=== PATIENT | male | born 1945 | race Caucasian/White ===

== ENCOUNTER → 2020-10-27 15:07 | Outpatient (CLI) | payer MEDICARE, SELFPAY ==
[2019-05-31 11:23] VITALS: BMI 32.2
--- NOTE | 2020-10-27 | LES_PTH ---
PATIENT: ROHIT NAVARRO LOC: [facility] U#:[id number] AGE/SX: 80/M ROOM: RE10/27/[address]: Dr. Cristian Yang MD : 1945 BED: DIS: SPEC #: [id number] RECD: 10/27/20 14:58 STATUS: CASEY RALPH #: [id number] CATHRYN: 10/27/20 00:[address]: Cristian Yang DEPT: SURGICAL PATHOLOGY RECD BY: Maureen Fraser ENTERED: 10/31/20 07:59 SP TYPE: Lesion OTHR DR: Kaylie Little PA-C Tissues: Skin of eyelid, NOS Procedures: Surgery Specimen Level IV HEADER OPERATION: Excision lesion right upper lid PRE-OP DIAGNOSIS: Lesion right upper lid TISSUE SUBMITTED: Lesion right upper lid MICROSCOPIC DIAGNOSIS Lesion of right upper eyelid, biopsy: Consistent with polypoid seborrheic keratosis. AM:juno 11/01/2020 MICROSCOPIC DESCRIPTION Slides are reviewed. GROSS DESCRIPTION Received in fixative is one container labeled with the patient's name and designated right upper lid. The specimen consists of an irregular fragment of dark pimentel soft tissue measuring 0.1 x 0.1 x <0.1 cm. The specimen is totally submitted in one cassette. / AM:juno 10/31/20 TC:5 CPT: 33110
== END ==
PROVIDERS: PCP Family Medicine; Referring Provider Ophthalmology; Visit Provider Ophthalmology
DX: L98.9 Disorder of the skin and subcutaneous tissue, unspecified (principal)
CPT/HCPCS: 88305

== ENCOUNTER 2021-08-06 10:44 | Day surgery (SDC) | payer MEDICARE, SELFPAY ==
--- NOTE | 2021-08-01 10:51 | RAD_ITS ---
STUDY: X-RAY CHEST REASON FOR EXAM: Male, 76 years old. For PPM generator change on 08/06/[address] German TECHNIQUE: PA and lateral. COMPARISON: 03/16/2015. FINDINGS: LUNGS: No consolidation. Reticular opacities in the left lung base unchanged likely scarring. No pneumothorax. MEDIASTINUM: Aorta tortuous and atherosclerotic.. CARDIAC SILHOUETTE: Not enlarged. BONES AND SOFT TISSUES: No acute abnormalities. Pacemaker device overlying the left chest with dual leads terminating in the region of the right atrium and right ventricle, unchanged. RAD/Chest PA and Lateral IMPRESSION: No evidence of active intrathoracic disease. Electronically Signed: Emily Ojeda MD at 3:28 EDT ,
[2021-08-01 11:06] LABS: Mucous, Urine 0 SEEN /hpf (<or=2+); Red Blood Cells-Urine 0 SEEN /hpf (0-5); Squamous Epithelial Cells - UA 0 SEEN /hpf (0-5); White Blood Cells 0 SEEN /hpf (0-5)
[2021-08-01 11:34] LABS: Hemoglobin 15.1 g/dL (13.0-16.5); Mean Corp Hgb Conc 33.6 g/dL (32-36); Mean Corpuscular Hgb 30.9 pg (27.0-32.0); Mean Corpuscular Volume 92.2 fL (80-94); Mean Platelet Vol. 10.8 fl (6.2-12.0); Platelet Count 225 K/mm3 (150-450); RBC Distribution Width CV 13.4 % (11.6-14.6); Red Blood Count 4.88 M/mm3 (4.6-6.2)
[2021-08-01 11:35] LABS: Color, Urine Yellow (Yellow); Glucose, Dipstick Normal (Normal); Ketone-Dipstick Negative (Negative); Leukocyte Esterase-Dipstick Negative /ul (Negative); Nitrite-Dipstick Negative (Negative); Occult Blood-Urine Negative /ul (Negative); Protein-Dipstick Negative (Negative); Urine Bilirubin Dipstick Negative (Negative); Urine Clarity Sl. Cloudy (Clear); Urine Urobilinogen Normal (Normal)
[2021-08-01 11:38] LABS: Prothrombin Time (Protime)PT. 12.6 SECONDS (11.7-14.9)
[2021-08-01 11:47] LABS: Amorphous Sediment 1+; Bacteria 1+ /hpf (None Seen)
[2021-08-01 11:52] LABS: Anion Gap 4 (5-15); BUN 18 mg/dL (7-18); BUN/Creat Ratio 17.1 RATIO (10-20); Chloride 108 mmol/L (98-107); Creatinine, Serum 1.05 mg/dL (0.70-1.30); EST Glomerular Filtration Rate 73 mL/min (>60); Est Glom Filt Rate - Afr Amer 88 mL/min (>60); Glucose 102 mg/dL (74-106); Potassium 3.9 mmol/L (3.5-5.1); Sodium Level 138 mmol/L (136-145)
[2021-08-03 07:20] VITALS: BMI 32.8
--- NOTE | 2021-08-13 07:05 | CL.IE_ITS ---
Patient: ROHIT NAVARRO Study Date: 08/06/2021 Performing: Marco A German MD : 1945 Age: 76 Gender: male PROCEDURES PERFORMED LP07-([id number])BATTERY REMOVAL+REPLACEMENT PACER-DUAL LEAD INDICATIONS Sinoatrial node dysfunction/Sick sinus syndrome PROCEDURE DETAILS The patient was brought to the Catheterization Lab in the postabsorptive nonsedated state. Infor med consent was obtained prior to the procedure. Local anesthetic was given subcutaneously to the le ft subclavian region with Lidocaine 2%. Incision was made to the left subclavicular area. PPM generat or was attached to the lead(s) and inserted into the pocket. PPM generator was then interrogated by t he operating system programmer. Device pocket was irrigated with antibiotic. Subcutaneous closure was completed with 3 -0 Vicryl. Skin closure was completed with 4-0 Vicryl. Steri-strips applied to left subclavicular inc ision. Instrument, sponge, and needle counts were noted to be normal. The patient tolerated the proce dure well. Estimated Blood Loss: 15 ml's IMPLANTED / EX-PLANTED DEVICES IMPLANTED DEVICE(S): PPM Generator - Energy Administrator: [employer], Model # Assurity MRI Ref [id number] , Serial # [id number] DEVICE PARAMETERS ATRIAL LEAD PARAMETERS: P wave- 1.0 (mV) Current- 1.1 (mA) threshold- 0.5 (V) impedence- 460 (OHMS) VENTRICULAR LEAD PARAMETERS: Current- 1.9 (mA) threshold- 1.0 (V) impedence- 550 (OHMS) DEVICE PARAMETERS: Mode- DDDR Lower rate- 60 Upper rate- 120 CONCLUSIONS / RECOMMENDATIONS Device Conclusions: Successful implantation of a dual chamber pacemaker battery change and replacemen t Device Recommendations: Follow up with Primary Care Physician PROCEDURE MEDICATIONS Versed 1 mg IV Fentanyl 50 mcg IV Versed 1 mg IV Oxygen: 2 L/min via nasal cannula Antibiotic given in appropriate timeframe. Clindamycin 900 mg IV 08/06/2021 11:37:39 Signed By Marco A German MD On 08/13/2021 7:44:52 AM Signed By Marco A German MD On 08/13/2021 07:03:46 Marco A German MD
== END 2021-08-06 23:59 | disposition home or self-care (01) ==
PROVIDERS: Internal Medicine Cardiovascular Disease; PCP Physician Assistant; Referring Provider Internal Medicine Cardiovascular Disease; Visit Provider Internal Medicine Cardiovascular Disease
DX: I49.5 Sick sinus syndrome (principal); I73.9 Peripheral vascular disease, unspecified; I71.4 Abdominal aortic aneurysm, without rupture; Z95.0 Presence of cardiac pacemaker; I25.10 Atherosclerotic heart disease of native coronary artery without angina pectoris; I10 Essential (primary) hypertension; Z87.891 Personal history of nicotine dependence; I49.1 Atrial premature depolarization; E78.00 Pure hypercholesterolemia, unspecified
CPT/HCPCS: 33228; 36415; 71046; 80048; 81001; 85027; 85610; 99152; 99153; J7050

== ENCOUNTER → 2023-02-20 | Outpatient (CLI) | payer MEDICARE, SELFPAY ==
--- NOTE | 2023-02-20 15:44 | CT_ITS ---
EXAM: CT ANGIOGRAPHY CHEST, ABDOMEN AND PELVIS WITH INTRAVENOUS CONTRAST CLINICAL INDICATION: aortic aneurysm TECHNIQUE: Helically acquired angiography images were obtained of the chest, abdomen and pelvis with intravenous contrast. This CT exam was performed using one or more of the following dose reduction techniques: automated exposure control, adjustment of the mA and/or kV according to patient size, and/or use of iterative reconstruction technique. MIP reconstructed images were created and reviewed. CONTRAST: IV 100mL Isovue-370 COMPARISON: No relevant prior studies available. FINDINGS: VASCULATURE: AORTA: There is an infrarenal aortic aneurysm that measures 4.1 cm in AP diameter. There is a crescent of thrombus seen in the anterior aspect of the aneurysm. There is no dissection or. PULMONARY ARTERIES: Unremarkable. Normal in caliber. No obvious central pulmonary embolism although this study was not performed with the pulmonary embolism protocol. GREAT VESSELS OF AORTIC ARCH: Unremarkable. Normal in caliber. No dissection. CELIAC TRUNK AND MESENTERIC ARTERIES: No acute findings. No occlusion or significant stenosis. No dissection. RENAL ARTERIES: No acute findings. No occlusion or significant stenosis. No dissection. ILIAC ARTERIES: No acute findings. No occlusion or significant stenosis. No dissection. CHEST: LUNGS AND PLEURAL SPACES: Unremarkable. No mass. No consolidation or edema. No pleural effusion or thickening. No pneumothorax. HEART: Unremarkable. Heart size is normal. No pericardial effusion. MEDIASTINUM: Unremarkable. No mediastinal or hilar adenopathy. Esophagus is unremarkable. No hiatal hernia. THYROID: Unremarkable. No thyroid lesions. ABDOMEN: LIVER: Unremarkable. Homogeneous. No focal mass. GALLBLADDER AND BILE DUCTS: Unremarkable. No calcified gallstones. No gallbladder distention or wall edema. No intra- or extrahepatic biliary ductal dilation. PANCREAS: Unremarkable. No focal cystic or solid mass. SPLEEN: Unremarkable. Normal size without focal cystic or solid mass. ADRENALS: Unremarkable. No nodules. KIDNEYS AND URETERS: There are low-density masses on the left kidney compatible simple cysts. No follow-up imaging is necessary. There is nonobstructing calyceal stones in the right kidney. STOMACH AND BOWEL: There is sigmoid diverticulosis with no evidence of diverticulitis. No stomach or bowel distention. PELVIS: APPENDIX: No evidence of acute appendicitis. BLADDER: Unremarkable. REPRODUCTIVE: Unremarkable as visualized. No mass. CHEST, ABDOMEN and PELVIS: INTRAPERITONEAL SPACE: Unremarkable. No ascites or other fluid collection. No free air. BONES/JOINTS: Unremarkable. No suspicious lytic or blastic abnormality. SOFT TISSUES: Unremarkable. No discrete abdominal or pelvic wall hernia. LYMPH NODES: Unremarkable. No enlarged lymph nodes. OTHER FINDINGS: There is multilevel degenerative change of the thoracic and lumbar spine with disc space narrowing. CT/CTA Chst, Abd, Pel W and/or WO IMPRESSION: 1. Infrarenal abdominal aortic aneurysm. There is no evidence of dissection or rupture. 2. No acute abnormalities in the chest, abdomen or pelvis. Electronically Signed: Philipp Salcedo MD at 17:09 EDT ,
[2023-02-20 16:21] LABS: Creatinine, Serum 0.96 mg/dL (0.70-1.30); EST Glomerular Filtration Rate 80 mL/min (>60); Est Glom Filt Rate - Afr Amer 97 mL/min (>60)
== END | disposition home or self-care (01) ==
LOC: CT 15:36
PROVIDERS: PCP Physician Assistant; Referring Provider Surgery Trauma Surgery; Visit Provider Surgery Trauma Surgery
DX: I71.9 Aortic aneurysm of unspecified site, without rupture (principal); Z86.79 Personal history of other diseases of the circulatory system; Z98.890 Other specified postprocedural states
CPT/HCPCS: 36415; 71275; 74174; 82565; Q9967; A4216

== ENCOUNTER → 2025-01-12 | Outpatient (CLI) | payer MEDICARE, SELFPAY ==
--- NOTE | 2025-01-12 12:06 | RAD_ITS ---
PROCEDURE: CHEST PA AND LATERAL 01/12/2025 REASON FOR EXAM: CHEST PAIN, CATH TECHNIQUE: Procedure Code: RADCXR Modality: DX Procedure: CHEST PA AND LATERAL COMPARISON: Prior study dated August 01, 2021. FINDINGS: Hardware: A left-sided dual-chamber pacemaker is seen. Heart: Heart size is moderately enlarged. Mediastinum: The mediastinal contour is unremarkable. Lungs: Hyperinflation. Stable mild scarring at the lung bases. Stable elevation of the posterior aspect of the left hemidiaphragm. Bones: Increased kyphosis. Mild wedging of central thoracic vertebrae. Chronic calcification of the aortic arch and descending thoracic aorta. RAD/Chest PA and Lateral IMPRESSION: Stable examination. No acute abnormality is seen. Reading Location: [place] [id number]
[2025-01-12 12:42] LABS: Hematocrit 46.7 % (40-54); Hemoglobin 15.9 g/dL (13.0-16.5); Immature Granulocytes Count 0.020 X10^3/uL (0.0-0.0); Mean Corp Hgb Conc 34.0 g/dL (32-36); Mean Corpuscular Volume 92.7 fL (80-94); Mean Platelet Vol. 11.2 fl (6.2-12.0); NRBC Flagged by Analyzer 0 % (0-5); Platelet Count 233 K/mm3 (150-450); RBC Distribution Width CV 14.2 % (11.6-14.6); RBC Distribution Width SD 48.4 fl (35.1-43.9); Red Blood Count 5.04 M/mm3 (4.6-6.2); White Blood Count 7.7 K/mm3 (4.4-11.0)
[2025-01-12 12:45] LABS: Prothrombin Time (Protime)PT. 13.8 SECONDS (11.7-14.9)
[2025-01-12 13:11] LABS: AST(SGOT) 14 U/L (<=37); Alanine Aminotransfer ALT/SGPT 9 U/L (<=46); Albumin, Serum 4.1 g/dL (3.4-4.8); Alkaline Phosphatase 62 U/L (40-129); Anion Gap 12 (5-15); BUN 13 mg/dL (4-19); BUN/Creat Ratio 13.3 RATIO (10-20); Bilirubin, Direct 0.19 mg/dL (0.00-0.30); Calcium,Total 9.2 mg/dL (7.6-11.0); Carbon Dioxide 24.8 mmol/L (21.0-32.0); Chloride 104 mmol/L (98-108); Cholesterol 233 mg/dL (<=200); Globulin 3.0 g/dL (2.2-4.2); Glucose 108 mg/dL (70-99); Low Density Lipoprotein Calc. 152 mg/dL; Potassium 4.1 mmol/L (3.3-5.1); Triglycerides 202 mg/dL; Very Low Density Lipoprotein 40 mg/dL (5-40); cholesterol:hdl ratio screen 5.77
== END | disposition home or self-care (01) ==
LOC: RAD 11:48
PROVIDERS: PCP Physician Assistant; Referring Provider Student in an Organized Health Care Education/Training Program; Visit Provider Student in an Organized Health Care Education/Training Program
DX: R07.9 Chest pain, unspecified (principal); I48.0 Paroxysmal atrial fibrillation; I25.10 Atherosclerotic heart disease of native coronary artery without angina pectoris; E78.00 Pure hypercholesterolemia, unspecified
CPT/HCPCS: 36415; 71046; 80048; 80061; 80076; 85025; 85610

== ENCOUNTER 2025-02-07 08:41 | Day surgery (SDC) | payer MEDICARE, SELFPAY ==
[2025-02-04 08:46] VITALS: BMI 33.2
--- NOTE | 2025-02-07 11:57 | CL.D_ITS ---
Patient Name: ROHIT NAVARRO Study Date: 02/07/2025 Performing: Marco A German MD Ht: 71 inches 180.34 cm : 1945 Wt: 237.99 lbs 107.95 kg Age: 79 Gender: male BSA: 2.27 PROCEDURE(S) PERFORMED DC01-([id number])LHC/COR/LV CLINICAL PROFILE AND INDICATIONS Heart Failure: None CONCLUSIONS At least moderate to severe two-vessel disease involving the proximal left anterior descending artery and proximal ramus intermedius. RECOMMENDATIONS Recommend IFR to see the severity of the ostial LAD and ramus DESCRIPTION OF PROCEDURE The patient arrived to the procedure lab. The risks and benefits of the procedure as well as a full description of our services here and current unavailability of surgical backup were fully explained to the patient and/or their significant other prior to the catheterization. The Timeout was completed, verifying the correct patient and procedure. The patient's procedural site was prepped and draped in the usual fashion. Local anesthetic was given subcutaneously to right radial region with Lidocaine 2%. Using a modified Seldinger technique, arterial access was obtained via the right radial artery, a 6Fr sheath was inserted. Left Coronary Artery selective angiography was performed in multiple views using a 5 Fr. 4.0 [place] catheter. Left Coronary Artery selective angiography was performed in multiple views using a 5 Fr. JL4 catheter. Right Coronary Artery selective angiography was then performed in multiple views using a 5 Fr. JR 5 catheter. Left Ventriculography was performed in [place] projection using a 5 Fr. Pigtail catheter. LV to AO pullback pressures were then recorded. CORONARY ANGIOGRAPHY DOMINANCE: Left Dominant LEFT HEART ASSESSMENT Left Ventricular Ejection Fraction: by LV Gram 45 % Anterior Hypokinesis - Moderate Depressed Left Ventricular systolic function LEFT MAIN: short LM LEFT ANTERIOR DESCENDING ARTERY: Large vessel with possible ostial 60% stenosis and tortuous vessel and first diagonal with mild disease and distal mild disease present. CIRCUMFLEX ARTERY: Large dominant vessel with mild to moderate proximal disease and the vessel continues and gives off 2 obtuse marginal branches a posterior descending artery and a posterolateral vessel. The posterolateral vessel has a 60% long diffuse stenosis present RAMUS: Ostial 80% stenosis in proximal 80% stenosis present RIGHT CORONARY ARTERY: Nondominant with no significant disease COMPLICATIONS PROCEDURE MEDICATIONS Versed 1 mg IV Fentanyl 25 mcg IV Oxygen: 2 L/min via nasal cannula Aspirin (325mg) 1 Tabs PO @ 02/07/2025 09:24:07 Heparin given IA 02/07/2025 11:07:03 Heparin 5000 unit(s) IV 02/07/2025 11:47:35 Verapamil 2.5mg, Ntg 100mcgs, 3000 units of Heparin given IA 02/07/2025 11:07:03 SUMMARY OF HEMODYNAMIC DATA Time AIR REST ECG 09:19:54 Art 139/58 (81) 11:09:49 AO 136/69 (94) SA 11:13:37 LV 171/4, 15 11:29:24 LV 167/3, 9 11:29:31 LV 160/4, 11 11:30:24 LVp 188/23, 53 11:30:29 AOp 171/67 (99) 11:30:34 Signed By Marco A German MD On 02/07/2025 11:56:39 Marco A German MD
--- NOTE | 2025-02-07 14:04 | CL.I_ITS ---
Patient Name: ROHIT NAVARRO Study Date: 02/07/2025 Performing: Ion Toney MD Ht: 71 inches 180.34 cm : 1945 Wt: 237.99 lbs 107.95 kg Age: 79 Gender: male BSA: 2.27 PROCEDURE(S) PERFORMED IC10-(48137)FFR, CORONARY OR GRAFT, INITIAL VESSEL IC11-(15630)FFR, CORONARY OR GRAFT, EACH ADD'L VESSEL CLINICAL PROFILE AND CO-MORBIDITIES Indications: chest pain Heart Failure: None CONCLUSIONS iFR in the LAD was 0.92 (insignificant), iFR in the Ramus was 0.28(significant) RECOMMENDATIONS Medical therapy for CAD at this time DESCRIPTION OF PROCEDURE The patient arrived to the procedure lab. The risks and benefits of the procedure as well as a full description of our services here and current unavailability of surgical backup were fully explained to the patient and/or their significant other prior to the catheterization. The Timeout was completed, verifying the correct patient and procedure. The patient's procedural site was prepped and draped in the usual fashion. Local anesthetic was given subcutaneously to right radial region with Lidocaine 2% Using a modified Seldinger technique,arterial access was obtained via the right radial artery, a 6Fr sheath was inserted. Left Coronary Artery selective angiography was performed in multiple views using a 5 Fr. 4.0 [place] catheter. Left Coronary Artery selective angiography was performed in multiple views using a 5 Fr. JL4 catheter. Right Coronary Artery selective angiography was then performed in multiple views using a 5 Fr. JR 5 catheter. Left Ventriculography was performed in AYALA projection using a 5 Fr. Pigtail catheter. LV to AO pullback pressures were then recorded.The images were reviewed and options discussed. A decision was then made to proceed with an Intervention, IVUS or other adjunct procedure. XB 3.0 Guide catheter was inserted and engaged into the LCA. The FFR/iFR wire was inserted. The FFR/iFR wire was then removed. EBU 3.5 Guide catheter was inserted and engaged into the LCA. The FFR/iFR wire was inserted. iFR measurements were performed. iFR Ratio: 0.92 Pressures and FFR/iFR were then recorded. iFR Ratio: 0.28 The FFR/iFR wire was then removed. The arterial sheath was pulled and a TR Band was applied for hemostasis INTERVENTION INFORMATION LESION SITE: LAD (Ostial) Lesion Devices: Cordis 6 Fr XB3.0 100cm Guide Catheter Medtronic 6 Fr EBU3.5 100cm Guide Catheter LESION SITE: Ramus (Ostial) Lesion Devices: Localo Coronary FFR Wire Medtronic 6 Fr EBU3.5 100cm Guide Catheter COMPLICATIONS No Complications PROCEDURE MEDICATIONS Versed 1 mg IV Fentanyl 25 mcg IV Oxygen: 2 L/min via nasal cannula Aspirin (325mg) 1 Tabs PO @ 02/07/2025 09:24:07 Heparin given IA 02/07/2025 11:07:03 Heparin 5000 unit(s) IV 02/07/2025 11:47:35 Verapamil 2.5mg, Ntg 100mcgs, 3000 units of Heparin given IA 02/07/2025 11:07:03 SUMMARY OF HEMODYNAMIC DATA Time AIR REST ECG 09:19:54 Art 139/58 (81) 11:09:49 AO 136/69 (94) SA 11:13:37 LV 171/4, 15 11:29:24 LV 167/3, 9 11:29:31 LV 160/4, 11 11:30:24 LVp 188/23, 53 11:30:29 AOp 171/67 (99) 11:30:34 AIR REST 13:39:00 Signed By Ion Toney MD On 02/07/2025 14:03:53 Ion Toney MD
== END 2025-02-07 15:52 | disposition home or self-care (01) ==
PROVIDERS: PCP Physician Assistant; Referring Provider Internal Medicine Cardiovascular Disease; Visit Provider Internal Medicine Cardiovascular Disease
DX: R07.9 Chest pain, unspecified (principal); I49.5 Sick sinus syndrome; I48.19 Other persistent atrial fibrillation; I25.10 Atherosclerotic heart disease of native coronary artery without angina pectoris; Z95.0 Presence of cardiac pacemaker; I10 Essential (primary) hypertension; E78.00 Pure hypercholesterolemia, unspecified; I71.43 Infrarenal abdominal aortic aneurysm, without rupture; Z79.899 Other long term (current) drug therapy
CPT/HCPCS: 93458; 93571; 93572; 99152; 99153; C1887; Q9967; C1769; C1894